=== PATIENT | female | born 1975 | race Caucasian/White ===

== ENCOUNTER 2017-08-07 17:42 | Emergency (ER) | payer BC ==
[2017-08-07 18:59] VITALS: BP 127/70
--- NOTE | 2017-08-07 19:24 | ED ---
Lower Extremity - HPI Summary HPI Summary: 41yr old female with right ankle pain. She twisted ankle twice today. Complains pain bearing weight. Localized over the lateral ankle. Minimal soft tissue swelling. - History of Current Complaint Chief Complaint: UCLowerExtremity Stated Complaint: RT ANKLE COMP Time Seen by Provider: 08/07/17 19:06 Hx Last Menstrual Period: about a year ago Pain Intensity: 6 - Allergies/Home Medications Allergies/Adverse Reactions: Allergies Allergy/AdvReac Type Severity Reaction Status Date / Time anesthesia Allergy Nausea And Uncoded 08/07/17 18:56 Vomiting Home Medications: Home Medications Ibuprofen TAB* [Motrin TAB* 800 MG] 800 mg PO ONCE 08/07/17 [History Confirmed 08/07/17] PMH/Surg Hx/FS Hx/Imm Hx - Surgical History Surgery Procedure, Year, and Place: gall bladder removal Infectious Disease History: No Infectious Disease History: Denies: Traveled Outside the [place] in Last 30 Days - Family History Known Family History: Positive: None - Social History Alcohol Use: Occasionally Substance Use Type: Reports: None Smoking Status (MU): Never Smoked Tobacco Review of Systems Positive: Other - ankle right pain All Other Systems Reviewed And Are Negative: Yes Physical Exam Triage Information Reviewed: Yes Vital Signs On Initial Exam: Initial Vitals Temp Pulse Resp BP Pulse Ox 99 F 87 16 127/70 100 08/07/17 18:53 08/07/17 18:53 08/07/17 18:53 08/07/17 18:53 08/07/17 18:53 Vital Signs Reviewed: Yes Appearance: Positive: Well-Appearing, No Pain Distress Skin: Positive: Warm, Skin Color Reflects Adequate Perfusion Head/Face: Positive: Normal Head/Face Inspection Eyes: Positive: EOMI Neck: Positive: Nontender Cardiovascular: Positive: Pulses are Symmetrical in both Upper and Lower Extremities - DP and PT Abdomen Description: Positive: Nontender Musculoskeletal: Positive: Other - right ankle tender over the lateral malleolus. No tenderness over the base of the 5th metatarsal, non tender over the medial malleolus, no tenderness over the head fibula. Neurological: Positive: Sensory/Motor Intact, Alert, Oriented to Person Place, Time, CN Intact II-III Psychiatric: Positive: Normal - Parker Coma Scale Best Eye Response: 4 - Spontaneous Best Motor Response: 6 - Obeys Commands Best Verbal Response: 5 - Oriented Coma Scale Total: 15 Diagnostics - Vital Signs Vital Signs Temp Pulse Resp BP Pulse Ox 08/07/17 18:53 99 F 87 16 127/70 100 - Laboratory Lab Statement: Any lab studies that have been ordered have been reviewed, and results considered in the medical decision making process. - Radiology ankle right Xray Interpretation: No Acute Changes Radiology Interpretation Completed By: Radiologist Lower Extremity Course/Dx - Course Course Of Treatment: 41 yr old with ankle sprain. DC home. FU with ortho. - Diagnoses Provider Diagnoses: Right ankle sprain Discharge - Sign-Out/Discharge Documenting (check all that apply): Discharge/Admit/Transfer - Discharge Plan Condition: Good Disposition: HOME Patient Education Materials: Ankle Sprain (ED) Referrals: Fareed Calvert MD [Primary Care Provider] - 2 Days - Billing Disposition and Condition Condition: GOOD Disposition: Home
--- NOTE | 2017-08-07 19:50 | RAD ---
Indication: Lateral ankle pain. 3 views of the right ankle demonstrates no fracture. No other bone or joint abnormality is identified. IMPRESSION: No fracture of the right ankle is noted.
== END 2017-08-07 20:15 | disposition home or self-care (01) ==
LOC: UCCORT 17:42
DX: S93.401A Sprain of unspecified ligament of right ankle, initial encounter (principal); X50.0XXA Overexertion from strenuous movement or load, initial encounter; Y93.9 Activity, unspecified; Y92.9 Unspecified place or not applicable; Z88.4 Allergy status to anesthetic agent
CPT/HCPCS: 99203; G0463